=== PATIENT | female | born 1990 | race Two or more races ===

== ENCOUNTER 2023-08-20 01:14 | Emergency (ER) | payer OTHER ==
[~2023-08-20] VITALS: Ht 157.5 cm; Wt 79.5 kg
[2023-08-20 04:10] VITALS: BP 121/89; PULSE 76; RESP 16; TEMP 98.4; O2SAT 100
[2023-08-20] MEDS ORDERED: PRED20TA2 PO (04:40)
[2023-08-20] MEDS ORDERED: CETITAB29 PO (04:40)
[2023-08-20] MEDS: LORATADINE 10 MG TAB PO ONE (04:56)
[2023-08-20] MEDS: DexAMETHasone SOD PHOS 10MG/1ML VIAL INJ IM ONE (04:57)
== END 2023-08-20 05:30 | disposition home or self-care (01) ==
LOC: ER 01:14
DX: L25.9 Unspecified contact dermatitis, unspecified cause (principal)
CPT/HCPCS: 96372; 99283; J1100